=== PATIENT | male | born 1960 ===

== ENCOUNTER 2021-02-04 03:38 | Observation (INO) | payer BC ==
[~2021-02-04] VITALS: Ht 162.6 cm; Wt 78.0 kg
[2021-02-04 04:43] VITALS: BP 134/69; PULSE 66; TEMP 98.6
[2021-02-04] MEDS ORDERED: CARDURA4 MG PO (04:49)
[2021-02-04] MEDS ORDERED: JALYN 0.5 MG-0.1 CAP PO (04:49)
[2021-02-04] MEDS ORDERED: COZAAR100 MG PO (04:50)
[2021-02-04] MEDS ORDERED: CELEBREX 200MG200 MG PO (04:51)
[2021-02-04] MEDS ORDERED: GLUCOTROL10 MG PO (04:53)
[2021-02-04] MEDS ORDERED: FORTAMET500 M1 PO (04:53)
[2021-02-04] MEDS ORDERED: FEOSOL45 MG (04:54)
[2021-02-04] MEDS ORDERED: VITAMIN C500 MG PO (04:55)
--- NOTE | 2021-02-04 05:02 | NUR ---
PT ARRIVES TO MEDICAL FLOOR AT ABOUT 0400 THIS MORNING TO ROOM 357,WITH BELONGINGS PLACED IN CLOSET, THIS NURSE RECEIVED TRANSFER PW FROM EMS AND PLACED IN PT'S CHART. PT A/OX4, ABLE TO AMBULATE FROM STRETCHER TO BED WITH AN UNSTEADY GAIT. VSS. 02 ROOM AIR. PT DENIES PAIN,N,V,D, CONSTIPATION, DIZZINESS, WEAKNESS. PT ORIENTED TO FLOOR AND HOSPITAL VISITOR POLICY. ASSESMENT COMPLETE. MED REC COMPLETE AND A COPY PLACED IN PT'S CHART. POC DISCUSSED WITH PT. PT VERBALIZES UNDERSTANDING. ALL QUESTIONS.CONCERNS ANSWERED AT THIS TIME. CALL LIGHT WITHIN REACH. SEIZURE PRECUATIONS IN PLACE. ALL NEEDS MET AT THIS TIME. CALL LIGHT WITHIN REACH.
[2021-02-04 05:31] LABS: COLLECTION METHOD CLEAN CATCH
[2021-02-04 05:36] LABS: BASO % 0.2 % (0.0-2.0); EOS % 0.5 % (0-4.0); GRAN % 72.6 % (42.2-75.2); HEMOGLOBIN 10.7 g/dl (13.5-18.0); LYMPH # 1.7 K/mm3 (1.2-3.4); LYMPH % 20.2 % (20.0-51.0); MEAN CELL VOLUME 91 fl (80.0-100.0); MEAN CORPUSCULAR HEMOGLOBIN 31 pg (27.0-31.0); MEAN CORPUSCULAR HGB CONC 34 g/dl (33.0-37.0); MEAN PLATELET VOLUME 9.7 fl (7.4-10.4); MONO # 0.5 K/mm3 (0.1-0.6); MONO % 6.3 % (1.7-9.3); PLATELET COUNT 234 K/mm3 (130-400); RED BLOOD COUNT 3.48 M/mm3 (4.20-5.60); REDCELL DISTRIBUTION WIDTH-CV 12.9 % (11.5-14.5)
[2021-02-04 05:39] LABS: HEMATOCRIT 31.8 % (42.0-52.0)
[2021-02-04 05:40] LABS: PH 5 (5-8); SQUAMOUS EPITHELIAL 0-2 /hpf (0-10); URINE APPEARANCE Clear (CLEAR/HAZY); URINE BACTERIA None Seen (NONE SEEN); URINE BILIRUBIN Negative (NEGATIVE); URINE BLOOD Negative (NEGATIVE); URINE COLOR Yellow (YELLOW); URINE GLUCOSE Negative (NEGATIVE); URINE KETONE Negative (NEGATIVE); URINE LEUKOCYTE ESTERASE Negative (NEGATIVE); URINE NITRATE Negative (NEGATIVE); URINE PROTEIN(semi-quant) Negative (NEGATIVE); URINE RBC None Seen /hpf (0-2); URINE UROBILINOGEN Negative (NEGATIVE)
[2021-02-04 05:57] LABS: ALBUMIN 3.9 gm/dL (3.4-4.8); BILIRUBIN,TOTAL 0.5 mg/dL (0.2-1.2); CALCIUM 8.8 mg/dL (8.4-10.2); CREATININE, serum 1.58 mg/dL (0.72-1.25); MAGNESIUM 1.3 mg/dL (1.6-2.6); PHOSPHOROUS 3.5 mg/dL (2.3-4.7); POTASSIUM 4.4 mmol/L (3.5-4.5); TOTAL PROTEIN 5.9 gm/dL (6.2-8.1)
[2021-02-04 06:17] LABS: TROPONIN-I 0.021 ng/mL (0.00-0.033); TSH w REFLEX 0.814 uIU/mL (0.350-4.940)
[2021-02-04] MEDS ORDERED: AVODART 0.5MG0.5 MG PO (06:19)
--- NOTE | 2021-02-04 06:36 | NUR ---
THIS NURSE CONTACTED DR VERMA FOR NEURO CONSULT AT THIS TIME, VORB INPUT INTO SYSTEM.
[2021-02-04 07:04] VITALS: BP 129/61; PULSE 60; TEMP 97.9
[2021-02-04 11:27] VITALS: BP 137/73; PULSE 61; TEMP 97.8
--- NOTE | 2021-02-04 12:57 | NUR ---
Plan to return to [place] with Berna . Patient reports that he resides with and does not have an alternate contact. Patient reports that his PCP is Dr. Yair Simon, last seen 3 weeks ago. Patient rpeorts that he does not have a POA and will not be driving. Patient denies needing any support with o2, mobility, or heart. Patient deneis having any care concerns. Patient fell asleep several times during interview. Educated on case management services. Will follow for more information.
[2021-02-04 15:30] VITALS: BP 140/78; PULSE 64; TEMP 97.5
[2021-02-04] MEDS ORDERED: PREVACID 30MG30 M1 PO (15:49)
--- NOTE | 2021-02-04 16:27 | NUR ---
THE PATIENT HAS STATED THAT HE DOES NOT WANT TO TAKE THE [place] OUT OF FEAR FOR LOSING HIS DRIVING ABILITY WITH THE [employer].
[2021-02-04 19:32] VITALS: BP 155/76; PULSE 59; TEMP 97.6
[2021-02-04 23:42] VITALS: BP 135/72; PULSE 86; TEMP 97.9
[2021-02-05 03:50] VITALS: BP 130/63; PULSE 85; TEMP 98.3
--- NOTE | 2021-02-05 05:54 | NUR ---
PT HAD UNEVENTFUL NIGHT THIS SHIFT. I&O NOTED AND RECORDED. NO CHANGES TO PT STATUS OVERNIGHT. ALL NEEDS MET THIS NIGHT. CALL LIGHT WITHIN REACH.
[2021-02-05 06:47] LABS: CALCIUM 9.2 mg/dL (8.4-10.2); CREATININE, serum 1.1 mg/dL (0.72-1.25); POTASSIUM 4.2 mmol/L (3.5-4.5)
[2021-02-05 06:56] LABS: BASO % 0.3 % (0.0-2.0); EOS # 0.1 K/mm3 (0.0-0.7); EOS % 2.4 % (0-4.0); GRAN # 3.3 K/mm3 (1.4-6.5); HEMOGLOBIN 11.2 g/dl (13.5-18.0); LYMPH # 1.8 K/mm3 (1.2-3.4); LYMPH % 31.8 % (20.0-51.0); MEAN CELL VOLUME 91 fl (80.0-100.0); MEAN CORPUSCULAR HEMOGLOBIN 30 pg (27.0-31.0); MEAN CORPUSCULAR HGB CONC 33 g/dl (33.0-37.0); MEAN PLATELET VOLUME 10.1 fl (7.4-10.4); MONO # 0.5 K/mm3 (0.1-0.6); MONO % 8.2 % (1.7-9.3); PLATELET COUNT 246 K/mm3 (130-400); RED BLOOD COUNT 3.71 M/mm3 (4.20-5.60); REDCELL DISTRIBUTION WIDTH-CV 12.9 % (11.5-14.5)
[2021-02-05 07:03] LABS: HEMATOCRIT 33.8 % (42.0-52.0)
[2021-02-05 07:52] VITALS: BP 150/84; PULSE 50; TEMP 98
[2021-02-05 11:36] VITALS: BP 154/74; PULSE 56; TEMP 97.7
[2021-02-05 15:16] VITALS: BP 172/73; PULSE 57; TEMP 97.8
--- NOTE | 2021-02-05 18:25 | NUR ---
PT HAD UNEVENTFUL DAY. HE STATED HE HAD A BRIEF MOMENT OF DIZZINESS BEFORE EATING LUNCH, BUT FELT BETTER AFTER EATING HIS LUNCH.
[2021-02-05 21:46] VITALS: BP 158/69; PULSE 50; TEMP 97.4
[2021-02-05 23:46] VITALS: BP 158/73; PULSE 50; TEMP 97.5
[2021-02-06 05:21] VITALS: BP 159/65; PULSE 46; TEMP 97.6
--- NOTE | 2021-02-06 06:16 | NUR ---
AT APPROXIMATELY 0415 TELE CALLED THIS NURSE TO INFORM OF PT HEART RATE AT 39, PT ASYMPTOMATIC. PT HYPERTENSIVE. PT ASYMPTOMATIC. HOSPITALIST INFORMED. PT REMAINS UPSET CONCERNING YESTERDAY'S DAYSHIFT INCIDENT (REFER TO SHIFT REPORT NOTE) AND MUCH MORE EAGER TO LEAVE HOSPITAL. HE IS EVIDENTLY UNSETTLED. THIS NURSE HAS ASKED HIM IF THERE IS ANYTHING SHE CAN DO TO PROVIDE ANY ASSISTANCE OR ALLEVATION, PT STATES "NO, WHEN ARE MY EXAMS TOMORROW?, SO I CAN GET OUT OF HERE." THIS NURSE WAS UNABLE TO PROVIDE EXACT TIME TO PT AT THAT TIME. CARDIOPULMONARY CALLED THIS NURSE THIS MORNING OF A POSSIBLE TIME FOR EEG AT 0830. THIS NURSE WILL ENSURE TO RELAY TO PT. ALL NEEDS MET THIS NIGHT. PT EXPRESSES NO ADDITIONAL NEEDS AT THIS TIME. CALL LIGHT WITHIN REACH.
[2021-02-06 06:55] LABS: BASO % 0.5 % (0.0-2.0); EOS # 0.2 K/mm3 (0.0-0.7); EOS % 3.1 % (0-4.0); GRAN # 3.5 K/mm3 (1.4-6.5); GRAN % 59.6 % (42.2-75.2); HEMOGLOBIN 10.9 g/dl (13.5-18.0); LYMPH # 1.6 K/mm3 (1.2-3.4); LYMPH % 27.6 % (20.0-51.0); MEAN CELL VOLUME 91 fl (80.0-100.0); MEAN CORPUSCULAR HEMOGLOBIN 31 pg (27.0-31.0); MEAN CORPUSCULAR HGB CONC 34 g/dl (33.0-37.0); MEAN PLATELET VOLUME 10.3 fl (7.4-10.4); MONO # 0.5 K/mm3 (0.1-0.6); PLATELET COUNT 221 K/mm3 (130-400); RED BLOOD COUNT 3.57 M/mm3 (4.20-5.60); REDCELL DISTRIBUTION WIDTH-CV 12.9 % (11.5-14.5)
[2021-02-06 07:00] LABS: CALCIUM 9.3 mg/dL (8.4-10.2); CREATININE, serum 1.15 mg/dL (0.72-1.25); MAGNESIUM 1.3 mg/dL (1.6-2.6); POTASSIUM 4.1 mmol/L (3.5-4.5)
[2021-02-06 07:09] LABS: HEMATOCRIT 32.4 % (42.0-52.0)
--- NOTE | 2021-02-06 07:11 | NUR ---
Report received from BLANQUITA Almanza. Pt. awake, sitting up in bed. Pt.'s supportive at bedside. Pt. expressing concerns regarding his tests today and he is wondering if he will be discharged today. This RN explained to the patient he has many tests to get done today and this RN will do her best to coordinate his tests and attempt to see what time they will be done today. Pt. denies further needs at this time. Call light and belongings in reach.
[2021-02-06 07:38] VITALS: BP 160/70; PULSE 45; TEMP 97.8
--- NOTE | 2021-02-06 08:49 | NUR ---
Pt. progressing w/ plan of care. AM meds given and assessment complete. Pt. getting EEG done at this time. Plan for ECHO and Carotid US after that, and MRI in the afternoon. Needs addressed, call light in reach.
[2021-02-06 13:21] VITALS: BP 132/66; PULSE 61; TEMP 98
--- NOTE | 2021-02-06 13:44 | NUR ---
Pt. progressing w/ plan of care. All tests ordered today have been completed. Pt. ordered lunch, pt. waiting for the meal to be brought up. Needs addressed, call light and belongings in reach.
[2021-02-06] MEDS ORDERED: ASPIRIN E.C. 8181 MG PO (13:50)
[2021-02-06] MEDS ORDERED: MAG-OX 400400 MG/TAB PO (14:10)
--- NOTE | 2021-02-06 14:22 | NUR ---
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 No needs right now.
--- NOTE | 2021-02-06 15:13 | NUR ---
Pt. discharged home. Pt. left floor via foot with hospital staff. Tele has been removed, IV has been removed, site c/d/i. All questions answered.
== END 2021-02-06 15:14 | disposition home or self-care (01) ==
LOC: MEDICAL 03:38
PROVIDERS: Nurse Practitioner Family; ADMIT Student in an Organized Health Care Education/Training Program
DX: E11.10 Type 2 diabetes mellitus with ketoacidosis without coma (principal); I95.9 Hypotension, unspecified; I10 Essential (primary) hypertension; R65.10 Systemic inflammatory response syndrome (SIRS) of non-infectious origin without acute organ dysfunction; N17.9 Acute kidney failure, unspecified; R00.1 Bradycardia, unspecified; D64.9 Anemia, unspecified; N40.0 Benign prostatic hyperplasia without lower urinary tract symptoms; F17.290 Nicotine dependence, other tobacco product, uncomplicated; Z79.84 Long term (current) use of oral hypoglycemic drugs; Z79.899 Other long term (current) drug therapy
CPT/HCPCS: 99223-AI; A9585; G0378; G0379; J1650; J1815; J2060; J3475; J7030